=== PATIENT | male | born 1975 | race Caucasian/White ===

== ENCOUNTER → 2018-05-28 12:31 | Outpatient (CLI) | payer OTHER, SELFPAY ==
[2018-05-28 14:45] LABS: Absolute Lymphocyte Count 2.21 X10^3/ul (0.83-4.51); Absolute Neutrophil Count 2.7 X10^3/uL (2.0-7.7); Basophil# 0.04 X10^3/uL; Basophil% 0.6 % (0-1); Eosinophil# 0.54 X10^3/uL; Eosinophils% 8.6 % (0-5); Hematocrit 42.1 % (40-54); Hemoglobin 13.8 g/dl (13.0-16.5); Lymphocyte # 2.21 X10^3/ul (4.0); Lymphocyte % 35.2 % (19-41); Mean Corp Hgb Conc 32.8 g/gl (32-36); Mean Corpuscular Hgb 29.6 pg (27.0-32.0); Mean Corpuscular Volume 90.1 fL (80-94); Mean Platelet Vol. 11.2 fl (6.2-12.0); Monocyte# 0.76 X10^3/uL; Monocyte% 12.1 % (0-10); Neutrophil % 43.2 % (47-70); Platelet Count 271 K/mm3 (150-450); RBC Distribution Width SD 49.6 fl (35.1-43.9); Red Blood Count 4.67 M/mm3 (4.6-6.2); White Blood Count 6.3 K/mm3 (4.4-11.0)
[2018-05-28 14:47] LABS: POSITIVE COUNT NO; POSITIVE DIFFERENTIAL NO; POSITIVE MORPHOLOGY NO
[2018-05-28 14:56] LABS: Anion Gap 9 (5-15); BUN 26 mg/dL (7-18); BUN/Creat Ratio 23.9 RATIO (10-20); Calcium,Total 9.2 mg/dL (8.5-10.1); Chloride 105 mmol/L (98-107); Creatinine, Serum 1.09 mg/dL (0.70-1.30); EST Glomerular Filtration Rate 78 mL/min (>60); Est Glom Filt Rate - Afr Amer 94 mL/min (>60); Glucose 91 mg/dL (74-106); Sodium Level 143 mmol/L (136-145)
[2018-06-01 03:06] LABS: HEPATITIS B SURFACE AG Negative (Negative); Hepatitis A AB, Total Negative (Negative); Hepatitis A IgM Antibody Negative (Negative); Hepatitis B Core AB IgM Negative (Negative); Hepatitis B Core Ab Total Negative (Negative); Hepatitis C Ab <0.1 s/co ratio (0.0-0.9); QNTFERON TB Mitogen Value > 10.00 IU/mL (.); QNTFERON TB Nil Value 0.04 IU/mL (.); QNTFERON TB1+ Ag Value 0.04 IU/mL (.); QNTFERON TB2+ Ag Value 0.04 IU/mL (.)
[2018-06-01 16:32] LABS: Hep B Surface Antibodies Non Reactive (.); QNTIFERON TB Positive Criteria Negative (Negative)
== END ==
PROVIDERS: Referring Provider Physician Assistant; Visit Provider Physician Assistant
DX: L40.0 Psoriasis vulgaris (principal)
CPT/HCPCS: 36415; 80048; 85025; 86480; 86704; 86705; 86706; 86708; 86709; 86803; 87340